=== PATIENT | female | born 1960 | race Caucasian/White ===

== ENCOUNTER 2017-03-14 14:16 | Emergency (ER) | payer OTHER ==
[~2017-03-14] VITALS: Ht 157.5 cm; Wt 80.7 kg
[~2017-03-14 14:16] MED LIST: "\\\"WATER PILL\\\""; Coumadin5 MG PO; DIGO.25 PO; HYDACE5 PO; IBUP800 PO; Lanoxin250 MCG PO; WARF5 PO; [UNRECOGNIZED DRUG - REMARK]
[2017-03-14] MEDS ORDERED: METO50ER (14:43)
[2017-03-14] MEDS ORDERED: WARF10 PO (14:43)
[2017-03-14] MEDS ORDERED: LISI5 PO (14:43)
[2017-03-14] MEDS ORDERED: Vibramycin100 MG PO (15:46)
== END 2017-03-14 15:58 | disposition home or self-care (01) ==
LOC: ER 14:16
DX: L03.116 Cellulitis of left lower limb (principal); Z79.01 Long term (current) use of anticoagulants
CPT/HCPCS: 73630; 99283

== ENCOUNTER 2022-10-07 16:55 | Emergency (ER) | payer OTHER ==
[~2022-10-07] VITALS: Ht 157.5 cm; Wt 81.7 kg
[~2022-10-07 16:55] MED LIST changes: +LISI5 PO; +METO50ER; +Vibramycin100 MG PO; +WARF10 PO
[2022-10-07] MEDS ORDERED: Lisinopril-Hct1 EAC4 PO (17:06)
[2022-10-07] MEDS ORDERED: PREG150 PO (17:07)
[2022-10-07] MEDS ORDERED: METOPROLOL TART5010 PO (17:07)
[2022-10-07] MEDS ORDERED: ELIQUIS2.5 MG PO (17:08)
[2022-10-07 18:00] VITALS: BP 116/64
[2022-10-07] MEDS ORDERED: ONDA4ODT SL (20:14)
== END 2022-10-07 20:30 | disposition home or self-care (01) ==
LOC: ER 16:55
DX: S05.12XA Contusion of eyeball and orbital tissues, left eye, initial encounter (principal); I48.91 Unspecified atrial fibrillation; Z79.01 Long term (current) use of anticoagulants; W01.190A Fall on same level from slipping, tripping and stumbling with subsequent striking against furniture, initial encounter; Y92.89 Other specified places as the place of occurrence of the external cause; Y99.0 Civilian activity done for income or pay
CPT/HCPCS: 70450; 72125; 93005; 93010; 99284-25; A9270